=== PATIENT | male | born 1965 | race Hispanic/Latino ===

== ENCOUNTER 2018-01-15 02:15 | Emergency (ER) | payer OTHER, SELFPAY ==
[2018-01-15] MEDS ORDERED: Ondansetron HCl/PF 4 MG/2 ML Vial ONE (02:49)
[2018-01-15 02:50] LABS: #Basophils 0.1 thou/uL (0.0-0.2); #Eosinphils 0.9 thou/uL (0.0-0.7); #Lymphocytes 3.2 thou/uL (1.20-3.40); #Monocytes 0.8 thou/uL (0.11-0.59); #Neutrophils 8.1 thou/uL (1.40-6.50); %Basophils 0.6 % (0.0-1.0); %Eosinophils 6.8 % (0.0-10.0); %Lymphocytes 24.2 % (21.0-51.0); %Monocytes 6.3 % (0.0-10.0); %Neutrophils 62.1 % (42.0-75.0); Hemoglobin 16.1 g/dL (14.0-18.0); Mean Corpuscular HGB CONC 34.1 g/dL (32.0-36.0); Mean Corpuscular Hemoglobin 31.2 pg (27.0-31.0); Mean Corpuscular Volume 91.2 fl (80.0-94.0); Mean Platelet Volume 9.5 fL (7.4-10.4); Platelet Count 209 thou/uL (130-400); RBC Distribution Width 12.5 % (11.5-14.5); Red Blood Cell (RBC) Count 5.16 mill/uL (4.70-6.10)
[2018-01-15 02:50] LABS: Bilirubin Negative (Negative); Blood, Urine Negative (Negative); Clarity CLEAR (Clear); Glucose, Urine (Dipstick) Negative (Negative); Leukocyte Negative (Negative); Nitrite Negative (Negative); Protein, Urine (Dipstick) Negative (Neg-Trace); Specific Gravity, Urine 1.016 (1.002-1.036); Urobilinogen 0.2 mg/dL (0.2-1.0)
[2018-01-15 03:11] LABS: ALT (SGPT) 26 U/L (8-55); AST (SGOT) 16 U/L (5-34); Albumin 4.7 g/dL (3.5-5.0); Alkaline Phosphatase 80 U/L (40-150); Anion Gap 12 mmol/L (10-20); BUN (Urea Nitrogen) 14 mg/dL (8.9-20.6); Bilirubin, Total 0.3 mg/dL (0.2-1.2); Calc. Creatinine Clearance 0 mL/min (70-130); Carbon Dioxide 27 mmol/L (22-29); Chloride 103 mmol/L (98-107); Estimated GFR-MDRD 74; Globulin 3.6 g/dL (2.4-3.5); Glucose 113 mg/dL (70-105); Lipase 27 U/L (8-78); Potassium 4.3 mmol/L (3.5-5.1); Protein, Total 8.3 g/dL (6.0-8.3); Sodium 138 mmol/L (136-145)
[2018-01-15] MEDS ORDERED: Lidocaine Viscous Sol 2% 15 ml UD Cup ONE (03:57)
[2018-01-15] MEDS ORDERED: Pantoprazole 40 MG VIAL ONE ×2 (03:57)
[2018-01-15] MEDS ORDERED: Mag-Al 1200 mg/1200 mg/30 ML UDCUP ONE (03:57)
[2018-01-15 04:26] LABS: CKMB 0.7 ng/mL (0-6.6); Troponin I Less than 0.010 ng/mL (< 0.028)
[2018-01-15] MEDS ORDERED: traMADol HCl 50 MG TAB ONE (08:07)
--- NOTE | 2018-01-15 08:07 | CT ---
PRELIMINARY REPORT/[facility]/EMERGENCY AFTER HOURS PROCEDURE: EXAM: CT Angiography Chest With Intravenous Contrast CLINICAL HISTORY: 52 years old, male; abdominal and back pain onset 1:00 this am. Denies SOB, denies chest pain. TECHNIQUE: Axial computed tomographic angiography images of the chest with intravenous contrast using pulmonary embolism protocol. Coronal and sagittal reformatted images were created and reviewed. COMPARISON: No relevant prior studies available. FINDINGS: Pulmonary arteries: No evidence of pulmonary embolism. Aorta: Normal caliber thoracic aorta without dissection or aneurysm. Lungs: No alveolar infiltrate. Lateral right lung calcified granuloma image 53, series 2. No mass. Pleural space: No pleural fluid collection. No pneumothorax. Heart: No pericardial effusion. No evidence of RV dysfunction. Bones/joints: No acute fracture. No dislocation. Soft tissues: Unremarkable. Lymph nodes: No pathologically enlarged lymph nodes. IMPRESSION: 1. No evidence of pulmonary embolism. 2. Normal caliber thoracic aorta without dissection or aneurysm. 3. No alveolar infiltrate. EXAM: CT Angiography Abdomen Without and With Intravenous Contrast CLINICAL HISTORY: 52 years old, male; abdominal and back pain onset 1:00 this am. Denies SOB, denies chest pain. TECHNIQUE: Axial computed tomographic angiography images of the abdomen without and with intravenous contrast. Coronal and sagittal reformatted images were created and reviewed. COMPARISON: No relevant prior studies available. FINDINGS: Lower thorax: No acute findings. Aorta: Normal caliber abdominal aorta without dissection or aneurysm. Celiac trunk and mesenteric arteries: No acute findings. No occlusion or significant stenosis. Renal arteries: No acute findings. No occlusion or significant stenosis. Liver: Liver fatty infiltration. Gallbladder and bile ducts: Unremarkable. No calcified stones. No ductal dilation. Pancreas: Unremarkable. No ductal dilation. No mass. Spleen: Unremarkable. No splenomegaly. Adrenals: Unremarkable. No mass. Kidneys and ureters: Small renal cysts. No hydronephrosis. Stomach and bowel: Unremarkable. No obstruction. No mucosal thickening. Intraperitoneal space: Unremarkable. No significant fluid collection. No free air. Bones/joints: No acute fracture. No dislocation. Soft tissues: Small fat-containing umbilical hernia. Lymph nodes: A few scattered prominent lymph nodes within the mesentery which could reflect a viral a denitis. IMPRESSION: 1. Normal caliber abdominal aorta without dissection or aneurysm. 2. A few scattered prominent lymph nodes within the mesentery which could reflect a viral adenitis. 3. Otherwise, no acute intra-abdominal process. Thank you for allowing us to participate in the care of your patient. Dictated and Authenticated by: Yair Edwards MD 01/15/2018 3:44 AM Central Time ([place] & [place]) FINAL REPORT EMERGENT AFTER HOURS CT ANGIOGRAM CHEST WITH IV CONTRAST AND 3D MIP RECONSTRUCTIONS EMERGENT AFTER HOURS CT ANGIOGRAM ABDOMEN WITH IV CONTRAST AND 3D MIP RECONSTRUCTIONS: IMPRESSION: Agree with the preliminary interpretation given by [facility]. No evidence for an acute process. POS: [facility]
[2018-01-15] MEDS ORDERED: ISOVUE-370 76%-LOCM 1 ML ONE (11:46)
== END 2018-01-15 08:13 | disposition home or self-care (01) ==
LOC: ERS 02:15
DX: R10.13 Epigastric pain (principal); I10 Essential (primary) hypertension; Z79.899 Other long term (current) drug therapy
CPT/HCPCS: 71275; 80053; 81003; 82553; 83690; 84484; 85025; 93005; 96361; 96374; 96375; C9113; J2270; J2405

== ENCOUNTER 2018-01-18 02:52 | Inpatient (IN) | payer SELFPAY ==
[2018-01-18] MEDS ORDERED: Acetaminophen 500 MG TAB ONE (03:50)
[2018-01-18] MEDS ORDERED: Ondansetron HCl/PF 4 MG/2 ML Vial ONE (04:07)
[2018-01-18 04:10] LABS: Band 4 % (5-11); Hemoglobin 14.5 g/dL (14.0-18.0); Lymphocytes 5 % (21-51); MDiff Complete? YES; Mean Corpuscular HGB CONC 33.1 g/dL (32.0-36.0); Mean Corpuscular Hemoglobin 30.4 pg (27.0-31.0); Mean Corpuscular Volume 91.9 fl (80.0-94.0); Mean Platelet Volume 9.8 fL (7.4-10.4); Monocytes 13 % (0-10); Neutrophil 78 % (42-75); PLT Morphology Comment Appears Adequate; Platelet Count 201 thou/uL (130-400); RBC Distribution Width 12.5 % (11.5-14.5); Red Blood Cell (RBC) Count 4.77 mill/uL (4.70-6.10); White Blood Cell (WBC) Count 23.3 thou/uL (4.8-10.8)
[2018-01-18 04:18] LABS: ALT (SGPT) 128 U/L (8-55); AST (SGOT) 58 U/L (5-34); Alkaline Phosphatase 197 U/L (40-150); Anion Gap 10 mmol/L (10-20); BUN (Urea Nitrogen) 14 mg/dL (8.9-20.6); Bilirubin, Total 2.9 mg/dL (0.2-1.2); Calc. Creatinine Clearance 0 mL/min (70-130); Calcium 9.6 mg/dL (7.8-10.44); Carbon Dioxide 27 mmol/L (22-29); Chloride 101 mmol/L (98-107); Estimated GFR-MDRD 66; Glucose 154 mg/dL (70-105); Lipase 11 U/L (8-78); Potassium 4.2 mmol/L (3.5-5.1); Sodium 134 mmol/L (136-145)
[2018-01-18] MEDS ORDERED: Meropenem 1 GM in Syringe 20 ML SLOW IVP SCH (04:30)
[2018-01-18 06:47] VITALS: BMI 25.3
[2018-01-18] MEDS ORDERED: Ondansetron HCl/PF 4 MG/2 ML Vial IVP PRN ×3 (07:34→15:56)
[2018-01-18] MEDS ORDERED: Ondansetron ODT 4 MG TAB SL PRN (07:34)
[2018-01-18] MEDS ORDERED: ISOVUE-370 76%-LOCM 1 ML ONE (07:35)
[2018-01-18] MEDS: Sodium Chloride 0.9% 1,000 ML IV SCH ×4 (08:24→23:24)
--- NOTE | 2018-01-18 09:41 | CT ---
PRELIMINARY REPORT/[facility]/EMERGENCY AFTER HOURS PROCEDURE: EXAM: CT Abdomen and Pelvis With Intravenous Contrast EXAM DATE/TIME: Exam ordered 01/18/2018 4:08 AM CLINICAL HISTORY: 52 years old, male; Pain; Abdominal pain; Localized; Right; Patient HX: Er 6; Right sided abdominal p ain onset 2 hours ago. Denies n/v/d. Seen in er , dx with gastritis. Fever TECHNIQUE: Axial computed tomography images of the abdomen and pelvis with intravenous contrast. Coronal reforma tted images were created and reviewed. COMPARISON: No relevant prior studies available. FINDINGS: Lower thorax: Bibasilar subsegmental atelectasis. Trace right pleural effusion. ABDOMEN: Liver: Hepatic steatosis. Gallbladder and bile ducts: Gallbladder is dilated and there is severe diffuse pericholecystic inflam mation, consistent with acute cholecystitis. No visible cholelithiasis. No biliary ductal dilatation. Pancreas: Unremarkable. No mass. No ductal dilation. Spleen: Unremarkable. No splenomegaly. Adrenals: Unremarkable. No mass. Kidneys and ureters: Round hypodense lesion of the left kidney does not meet strict CT criteria for a simple cyst and is indeterminate, potentially a hyperdense cyst. It measures 1.2 cm and 26 Hounsfiel d units. Kidneys otherwise unremarkable. Stomach and bowel: Unremarkable. No obstruction. No mucosal thickening. Appendix: Normal appendix. PELVIS: Bladder: Unremarkable. No mass. Reproductive: Mild prostatomegaly. ABDOMEN and PELVIS: Intraperitoneal space: Unremarkable. No free air. No significant fluid collection. Bones/joints: No acute fracture. No dislocation. Soft tissues: Unremarkable. Vasculature: Unremarkable. No abdominal aortic aneurysm. Lymph nodes: Unremarkable. No enlarged lymph nodes. IMPRESSION: 1. Acute cholecystitis. 2. Indeterminate left renal lesion as above, potentially a hyperdense cyst. Thank you for allowing us to participate in the care of your patient. Dictated and Authenticated by: Paolo Franco MD 01/18/2018 4:21 AM Central Time ([place] & [place]) FINAL REPORT CT ABDOMEN AND PELVIS WITH IV CONTRAST: Date: 01/18/18 FINDINGS/IMPRESSION: I agree with the preliminary report given by [facility]. POS: [facility]
--- NOTE | 2018-01-18 09:45 | ULT ---
PRELIMINARY REPORT/[facility]/EMERGENCY AFTER HOURS PROCEDURE: EXAM: US Abdomen Limited, Right Upper Quadrant CLINICAL HISTORY: 52 years old, male; Pain; Other: Abd pain, gb abnormal on CT TECHNIQUE: Real-time ultrasound of the right upper quadrant with image documentation. COMPARISON: CT Abdomen Pelvis W Con 2018-01-18 04:08 FINDINGS: Liver: Echogenicity compatible with steatosis. Gallbladder: Distended gallbladder containing sludge and stones with wall thickening measured measuri ng up to 7-8mm. Small amount of pericholecystic fluid. Positive Willis sign reported. Common bile duct: Common bile duct not well-visualized, normal in caliber on recent CT. Pancreas: Obscured by bowel gas. Right kidney: Normal. IMPRESSION: Findings compatible with cholecystitis. Thank you for allowing us to participate in the care of your patient. Dictated and Authenticated by: Yair Hui MD 01/18/2018 6:36 AM Central Time ([place] & [place]) FINAL REPORT RIGHT UPPER QUADRANT ULTRASOUND: Date: 01/18/18 FINDINGS/IMPRESSION: I agree with the preliminary report given by [facility]. POS: [facility]
[2018-01-18] MEDS ORDERED: Acetaminophen 1,000 MG in Premix Bag 1 BAG IVPB SCH (11:45)
[2018-01-18] MEDS ORDERED: Ketorolac Tromethamine 30 MG/ML VIAL IVP SCH (11:45)
--- NOTE | 2018-01-18 12:35 | HP ---
HISTORY OF PRESENT ILLNESS: Sebas Jorge is a 52-year-old male patient, who works as a equipment operator/laborer/supervisor on a [employer], presents to the hospital with epigastric right upper quadrant pain. Seen in the emergency room , and CAT scan of abdomen and pelvis and ultrasound revealed bile duct caliber 7-8 mm without intrahe patic ductal dilatation and findings consistent with acute cholecystitis. White count is 23,000, hem oglobin 14, sodium 134, bilirubin 2.9, AST and ALT 58 and 128 respectively, alkaline phosphatase 197, lipase 11. ALLERGIES: None. TOBACCO: None. ALCOHOL: None. MEDICATIONS: Lisinopril 20 mg a day, simvastatin 20 mg at bedtime, amlodipine 5 mg a day, aspirin 81 mg a day, omeprazole 20 mg a day, 10 mg a day Zyrtec. He was in the hospital recently in December, medical service for some, what was described as, chest d iscomfort. Underwent a CT dissection protocol. Echocardiogram that was normal and he is documented as to having exercise stress test that was negative. PAST SURGICAL HISTORY: Noncontributory. PAST MEDICAL HISTORY: Hypertension and cholesterol. REVIEW OF SYSTEMS: Ten-point noncontributory otherwise. PHYSICAL EXAMINATION: VITAL SIGNS: 77 kilograms, 124/73, 98.4, 94, 16, 134/85. EYES: Sclerae nonicteric. SKIN: Nonjaundiced. LUNGS: Clear to auscultation. CARDIAC: Regular rate and rhythm without murmur, rub, or gallop. ABDOMEN: Soft, tenderness in right upper quadrant, positive Willis's sign. EXTREMITIES: Unremarkable. Ankles without edema. ASSESSMENT AND PLAN: 1. Acute cholecystitis. Recommend laparoscopic video cholecystectomy and cholangiogram. I talked t o Dr. Maurice Robb and he will be evaluated for ERCP. He will consult him and see him prior to the o peration in case ERCP is necessary. Risk of infection, bleeding, visceral and biliary injury explain ed. He consents. 2. Hypertension. 3. Elevated cholesterol.
[2018-01-18] MEDS ORDERED: Iothalamate Meglumine 60% 50 ML VIAL FS ONE (12:52)
[2018-01-18] MEDS ORDERED: Bupivacaine HCl 0.5%/Epinephrine 1:200,000/PF 30 ml Vial ONE (12:52)
[2018-01-18] MEDS ORDERED: Fentanyl 100 MCG/2 ML VIAL ONE ×2 (13:24→15:02)
[2018-01-18] MEDS ORDERED: traMADol HCl 50 MG TAB PO PRN (14:38)
[2018-01-18] MEDS ORDERED: Promethazine HCl 25 MG/ML VIAL IM PRN (14:47)
[2018-01-18] MEDS ORDERED: Promethazine HCl 25 MG/ML VIAL SLOW IVP PRN (14:47)
--- NOTE | 2018-01-18 15:48 | RAD ---
CHOLANGIOGRAM IN SURGERY: Date: 01/18/18 HISTORY: Laparoscopic cholecystectomy, cholecystitis. FINDINGS/IMPRESSION: Single spot fluoroscopic image of the right upper quadrant during an intraoperative cholangiogram dem onstrates opacification of the common bile duct, cystic duct remnant, hepatic ducts and their branche s, and the pancreatic duct without filling defects. There is contrast in the second portion of the du odenum. Surgical instruments are in the field of view. POS: [facility]
[2018-01-18] MEDS ORDERED: Lidocaine 1% PF 5 ML VIAL ONE (15:52)
[2018-01-18] MEDS ORDERED: Glycopyrrolate 0.2 MG/ML 5 ML SYRINGE ONE (15:52)
[2018-01-18] MEDS ORDERED: PROPOFOL 200 MG/20 ML VIAL ONE (15:52)
[2018-01-18] MEDS ORDERED: Ondansetron ODT 8 MG TAB SL PRN (15:56)
[2018-01-18] MEDS ORDERED: Ondansetron ODT 8 MG TAB PO PRN (15:56)
[2018-01-18] MEDS ORDERED: Ondansetron ORAL SOLN. 4 MG/5 ML UDCUP PO PRN ×2 (15:56)
[2018-01-18] MEDS ORDERED: Ondansetron ODT 4 MG TAB PO PRN (15:56)
--- NOTE | 2018-01-18 16:07 | OP ---
PREOPERATIVE DIAGNOSES: Severe cholecystitis, elevated liver function tests, positive sonographic Mu rphy's, normal common bile duct caliber, upper limits of normal 7-8 mm, 52 years of age. POSTOPERATIVE DIAGNOSES: Severe cholecystitis, elevated liver function tests, positive sonographic M urphy's, normal common bile duct caliber, upper limits of normal 7-8 mm, 52 years of age. Liver func tion tests elevated secondary to acute cholecystitis. PROCEDURE PERFORMED: Laparoscopic video cholecystectomy. Normal intraoperative cholangiograms. A # 19 Gold RUTH drain placed in the right gutter subhepatic space. SURGEON: Dr. César La. ANESTHESIA: General. Local 0.5% Marcaine with epinephrine, 30 mL PROCEDURE IN DETAIL: The patient was taken to the operating room where under general anesthesia, abd omen was prepared with ChloraPrep, draped in routine fashion. Local anesthetic infiltrated into skin and subcutaneous tissue about each port site. Infraumbilical incision was made and pneumoperitoneum to 15 mmHg obtained with the Veress needle, replacing it with a 5 port and video laparoscope inserte d. Right subxiphoid incision made and 11 port placed. Right subcostal incision made mid clavicular anterior axillary lines and 5 ports placed. Liver appeared to be normal. Gallbladder was acutely in flamed with gangrenous patches surrounded by omentum. Omentum taken down and gallbladder wall was th ickened and I could not grasp it, I decompressed the gallbladder of its contents using cautery and abad ctioned then grasped the fundus, reflected cephalad. Severe inflammatory adhesions taken down identi fying the cystic duct, which was dissected free. Clip placed against the gallbladder. An opening ma de in the cystic duct and cholangiocath inserted and cholangiogram was obtained revealing free flow o f contrast into the duodenum without filling defects in the common hepatic, common bile, left and rig ht hepatic ducts. Common bile duct was small in caliber. Cholangiocath removed. Cystic duct stump doubly clipped, divided and gallbladder dissected free from the liver bed obtaining good hemostasis p rior to division of final peritoneal attachments. Gallbladder and contents were placed in an Endobag and removed. Irrigant and pneumoperitoneum evacuated. Good hemostasis ensured with the cautery. A rista placed in the gallbladder bed. Good hemostasis ensured. A #19 Gold RUTH drain placed in the gal lbladder bed, subhepatic fossa and brought out through the right lateral port site and secured with 3 -0 nylon. Irrigant and pneumoperitoneum evacuated. All instruments removed and all skin incisions a pproximated with interrupted subdermal 4-0 Monocryl after subxiphoid fascia approximated with figure- of-eight suture of 0 Vicryl UR needle. Good hemostasis had been achieved. Dermabond applied to the wound. The patient tolerated the procedure well.
[2018-01-18] MEDS: Ketorolac Tromethamine 30 MG/ML VIAL IVP PRN (16:50)
[2018-01-18] MEDS: Piperacillin/Tazobactam 4.5 GM in Sodium Chloride 0.9% 100 ML IVPB SCH ×2 (16:50→21:26)
[2018-01-18] MEDS: Enoxaparin Sodium 40 MG/0.4 ML SYRINGE SC SCH (21:28)
[2018-01-18] MEDS: traMADol HCl 50 MG TAB PO PRN (21:35)
[2018-01-19] MEDS: Ketorolac Tromethamine 30 MG/ML VIAL IVP PRN ×3 (02:21→20:44)
[2018-01-19] MEDS: Acetaminophen 500 MG TAB PO PRN ×3 (02:24→17:14)
[2018-01-19] MEDS ORDERED: Tamsulosin HCl 0.4 MG CAP PO SCH (04:30)
[2018-01-19] MEDS: Piperacillin/Tazobactam 4.5 GM in Sodium Chloride 0.9% 100 ML IVPB SCH ×4 (05:35→22:17)
[2018-01-19 05:47] LABS: #Eosinphils 0.1 thou/uL (0.0-0.7); #Lymphocytes 1.2 thou/uL (1.20-3.40); #Monocytes 1.4 thou/uL (0.11-0.59); #Neutrophils 13.1 thou/uL (1.40-6.50); %Basophils 0.2 % (0.0-1.0); %Eosinophils 0.5 % (0.0-10.0); %Lymphocytes 7.6 % (21.0-51.0); %Monocytes 8.9 % (0.0-10.0); %Neutrophils 82.9 % (42.0-75.0); Hemoglobin 11.7 g/dL (14.0-18.0); Mean Corpuscular HGB CONC 33.2 g/dL (32.0-36.0); Mean Corpuscular Volume 93.3 fl (80.0-94.0); Mean Platelet Volume 9.8 fL (7.4-10.4); Platelet Count 190 thou/uL (130-400); RBC Distribution Width 12.5 % (11.5-14.5); Red Blood Cell (RBC) Count 3.77 mill/uL (4.70-6.10); White Blood Cell (WBC) Count 15.8 thou/uL (4.8-10.8)
[2018-01-19 06:04] LABS: ALT (SGPT) 111 U/L (8-55); AST (SGOT) 70 U/L (5-34); Alkaline Phosphatase 176 U/L (40-150); Anion Gap 8 mmol/L (10-20); BUN (Urea Nitrogen) 11 mg/dL (8.9-20.6); Bilirubin, Direct 2.6 mg/dL (0.1-0.3); Bilirubin, Total 3.1 mg/dL (0.2-1.2); Calc. Creatinine Clearance 113 mL/min (70-130); Calcium 8.6 mg/dL (7.8-10.44); Carbon Dioxide 26 mmol/L (22-29); Chloride 105 mmol/L (98-107); Estimated GFR-MDRD 85; Glucose 123 mg/dL (70-105); Potassium 3.9 mmol/L (3.5-5.1); Sodium 135 mmol/L (136-145)
[2018-01-19] MEDS: Sodium Chloride 0.9% 1,000 ML IV SCH ×2 (06:31→17:20)
[2018-01-19] MEDS: Ibuprofen 600 MG TAB PO PRN (06:35)
[2018-01-19 07:03] LABS: Bilirubin Large (Negative); Blood, Urine Negative (Negative); Clarity CLEAR (Clear); Glucose, Urine (Dipstick) Negative (Negative); Leukocyte Negative (Negative); Nitrite Negative (Negative); Protein, Urine (Dipstick) 30 mg/dL (Neg-Trace); Specific Gravity, Urine 1.026 (1.002-1.036); pH, Urine 6.5 (5.0-9.0)
[2018-01-19 07:08] LABS: Bacteria/HPF None Seen HPF (None Seen); Hyaline Casts/LPF 0-3 HYALINE CAST LPF (0-3 Hyaline); Squamous Epithelial None Seen HPF (0-3); WBC/HPF 0-3 HPF (0-3)
[2018-01-19] MEDS: Polyethylene Glycol 3350 17 GM Packet PO SCH (08:30)
[2018-01-19] MEDS: Tamsulosin HCl 0.4 MG CAP PO SCH (08:32)
[2018-01-19] MEDS: traMADol HCl 50 MG TAB PO PRN ×2 (11:06→17:14)
--- NOTE | 2018-01-19 18:34 | PRG ---
DATE OF SERVICE: 01/19/2018 SUBJECTIVE: Sebas Jorge is doing well. One day status post laparoscopic cholecystectomy for gangren ous gallbladder. The patient has remained afebrile, 98.7 degrees, 84, 116/77. He has had problems u rinating. He reports problems at home urinating. He has been started on Flomax. Urology has seen h im and outpatient followup arranged. He is now voiding after two in and out caths. LABORATORY: White count down to 15,000 from 23,000 yesterday, hemoglobin stable at 11.7. Liver func tion tests are improved. Bilirubin 3.1 OBJECTIVE: LUNGS: Clear to auscultation. CARDIAC: Regular rate and rhythm without murmur or gallop. ABDOMEN: Soft, bowel sounds present. He is tolerating his diet. He has not had a bowel movement ye t. At this point, he is doing well. We will saline lock his IV fluids. Continue intravenous antibiotic s, sent to home with oral antibiotics. Continue Flomax for BPH and bladder outlet obstructive sympto ms that he had prior to this hospitalization. Check liver function test tomorrow as it remains sligh tly elevated. Expecting resolve with time. His RUTH drain is putting out serous fluid. We will kedar moffett remove that tomorrow.
[2018-01-19] MEDS: Enoxaparin Sodium 40 MG/0.4 ML SYRINGE SC SCH (20:42)
--- NOTE | 2018-01-20 03:13 | CON ---
DATE OF CONSULTATION: 01/19/2018 CHIEF COMPLAINT: Incomplete emptying, BPH. HISTORY OF PRESENT ILLNESS: Mr. Jorge is a 52-year-old gentleman who was seen in the emergency room o n 01/18/2018 and diagnosed with acute cholecystitis. He is now status post laparoscopic cholecystect louise in 01/18/2018. He tolerated the procedure well, but has had some complaints of urinary difficult ies. He was noted to have a post-residual of approximately 250. He is voiding. He states his curre nt voiding is not much worse than typical. He has a long history of urinary frequency and diminished stream. He has nocturia 3 times per night. This has been ongoing and not particularly worse at thi s time. He denies any dysuria. Denies any prior urologic history. He has not been taking any medic al therapy or had any evaluation in the past. He denies any prior prostate surgery. PAST MEDICAL HISTORY: Hypertension, hypercholesterolemia. PAST SURGICAL HISTORY: Laparoscopic cholecystectomy on 01/18/2018. ALLERGIES: No known drug allergies. SOCIAL HISTORY: He denies excessive alcohol or drug use. REVIEW OF SYSTEMS: Respiratory: No shortness of breath. Cardiovascular: No chest pain or palpitat ions. Gastrointestinal: Denies chronic constipation or diarrhea. Genitourinary: Please see histor y of present illness. Neurologic: Denies any dizziness. Endocrine: Denies history of diabetes. PHYSICAL EXAMINATION: GENERAL: He is awake, alert, is in no distress at this time. HEENT: Normocephalic, atraumatic. NECK: Supple, without masses. CHEST: Clear to auscultation. CARDIOVASCULAR: No murmurs auscultated. ABDOMEN: Soft, nontender, no palpable masses. Liver and spleen are palpable. No abdominal tenderne ss. GENITOURINARY: Penis with no lesions. Urethral meatus appears normal. Scrotum: No lesions. Testi cles palpably normal bilaterally. DIGITAL RECTAL EXAMINATION: 30 gram prostate, no nodules, no tenderness. Seminal vesicles are not p alpable. IMPRESSION: Mr. Jorge has a history consistent with BPH. He does not empty completely, but his curre nt voiding pattern is not significantly different than preop. I suspect he will respond well to medi merle therapy. He did not recommend catheterization unless he has worsening of his urinary symptoms. RECOMMENDATIONS: 1. Begin Flomax. 2. PSA. 3. May be discharged home, when deemed clinically able by Dr. La. I have sent a prescription fo r Flomax to his pharmacy in [place], [place]. He had been given my contact information for followup.
[2018-01-20] MEDS: Piperacillin/Tazobactam 4.5 GM in Sodium Chloride 0.9% 100 ML IVPB SCH (04:40)
[2018-01-20 04:45] LABS: #Basophils 0.1 thou/uL (0.0-0.2); #Eosinphils 0.2 thou/uL (0.0-0.7); #Lymphocytes 1.8 thou/uL (1.20-3.40); #Monocytes 1.5 thou/uL (0.11-0.59); #Neutrophils 10.6 thou/uL (1.40-6.50); %Basophils 0.6 % (0.0-1.0); %Eosinophils 1.5 % (0.0-10.0); %Lymphocytes 12.4 % (21.0-51.0); %Monocytes 10.3 % (0.0-10.0); %Neutrophils 75.2 % (42.0-75.0); Hemoglobin 11.5 g/dL (14.0-18.0); Mean Corpuscular HGB CONC 31.9 g/dL (32.0-36.0); Mean Corpuscular Volume 93.9 fl (80.0-94.0); Mean Platelet Volume 9.4 fL (7.4-10.4); Platelet Count 200 thou/uL (130-400); RBC Distribution Width 12.6 % (11.5-14.5); Red Blood Cell (RBC) Count 3.84 mill/uL (4.70-6.10); White Blood Cell (WBC) Count 14.1 thou/uL (4.8-10.8)
[2018-01-20 05:08] LABS: ALT (SGPT) 74 U/L (8-55); AST (SGOT) 34 U/L (5-34); Albumin 2.8 g/dL (3.5-5.0); Alkaline Phosphatase 176 U/L (40-150); Anion Gap 9 mmol/L (10-20); BUN (Urea Nitrogen) 12 mg/dL (8.9-20.6); Bilirubin, Total 2.3 mg/dL (0.2-1.2); Calc. Creatinine Clearance 104 mL/min (70-130); Calcium 8.6 mg/dL (7.8-10.44); Carbon Dioxide 27 mmol/L (22-29); Chloride 103 mmol/L (98-107); Estimated GFR-MDRD 77; Globulin 3.1 g/dL (2.4-3.5); Glucose 93 mg/dL (70-105); Potassium 3.7 mmol/L (3.5-5.1); Protein, Total 5.9 g/dL (6.0-8.3); Sodium 135 mmol/L (136-145)
[2018-01-20] MEDS: Acetaminophen 500 MG TAB PO PRN (06:24)
[2018-01-20] MEDS: traMADol HCl 50 MG TAB PO PRN (06:25)
[2018-01-20 08:25] VITALS: BP 137/91; TEMP 99.1
[2018-01-20] MEDS: Tamsulosin HCl 0.4 MG CAP PO SCH (08:25)
[2018-01-20] MEDS: Polyethylene Glycol 3350 17 GM Packet PO SCH (08:25)
--- NOTE | 2018-01-20 09:01 | PRG ---
DATE OF SERVICE: 01/20/2017 Sebas Jorge is doing well today. PHYSICAL EXAMINATION: VITAL SIGNS: Stable, afebrile, 99.1 degrees, heart rate 92, respiratory rate 15. LABORATORY: His white count is 14 down from 15 yesterday and 23 the day prior. Hemoglobin is stable at 11.5, sodium 135, BUN and creatinine 12 and 1.02 respectively. Bilirubin down from 3.1 to 2.3 to day. Transaminases are improved. PSA is normal. He is urinating and Flomax has been started. The patient was seen by Dr. Montes and will follow up with him for his BPH and chronic urinary problems. He was sent home on Cipro 500 b.i.d. for 5 days, Flomax #60, 3 refills and Ultram 50 as needed for pa in refractory to [id number] Tylenol and ibuprofen. Diet and activity as tolerated. Drain will be removed. He will be off work this week and resume wor k next week. LUNGS: Clear to auscultation. CARDIAC: Regular rate and rhythm without murmur or gallop. ABDOMEN: Soft, nontender. RUTH drain serosanguineous fluid, nonbilious will be removed today prior to discharge.
[2018-01-20] MEDS: Ibuprofen 600 MG TAB PO PRN (10:15)
--- NOTE | 2018-01-20 10:18 | DIS ---
ADMISSION DATE: 01/18/2018 DISCHARGE DATE: 01/20/2018 DISCHARGE DIAGNOSES: 1. Acute cholecystitis, gangrenous, elevated liver function tests secondary to above, normal bile du ct caliber 7 to 8 mm. 2. Chronic BPH, chronic urinary symptoms prior to this hospitalization exacerbated postoperatively r equired in and out catheterization, postoperatively seen by Urology, Dr. Montes who will follow him up as an outpatient. PROCEDURES: Laparoscopic cholecystectomy, cholangiograms normal. DISCHARGE MEDICATIONS: Cipro 500 b.i.d. 10 days, Flomax 0.4 mg a day #[address] Leela medel. Tramadol #21 refill, [id number] Tylenol, ibuprofen for pain. Resume home medications. Lisinopril 20 mg a day, simvastatin 20 mg at bedtime, amlodipine 5 mg a day, aspirin 81 mg a day, ome prazole 20 mg a day, Zyrtec as needed. HISTORY: A 52-year-old male presenting to the emergency room with abdominal pain, severe high white count, elevated liver function tests, bilirubin up to 3.5, bile duct caliber 8 mm, on his ultrasound with multiple gallstones. Gastroenterology was consulted in case ERCP was necessary. Postoperativel y, patient underwent laparoscopic video cholecystectomy with severe inflammatory changes in the gallb ladder noted with gangrenous patches. Cholangiogram was normal. Postoperatively, his bilirubin was on the decline by the time of discharge. He will be discharged home with the above regimen. Follow up with Dr. La in 2 to 3 weeks, Dr. Montes in 2 to 3 weeks and [facility] in a few weeks. Diet and activity as tolerated. Drain removed prior to discharge.
[2018-01-20] MEDS ORDERED: Ciprofloxacin 500 MG TAB PO SCH (20:00)
== END 2018-01-20 11:40 | disposition home or self-care (01) | DRG 412 ==
LOC: ERS 02:52 → SURG B 06:05
PROVIDERS: ADMIT Specialist; ATTEND Specialist
PROC: 0FT44ZZ Resection of Gallbladder, Percutaneous Endoscopic Approach (ICD-10-PCS; principal; 2018-01-18)
PROC: 0F9940Z Drainage of Common Bile Duct with Drainage Device, Percutaneous Endoscopic Approach (ICD-10-PCS; 2018-01-18)
PROC: BF10YZZ Fluoroscopy of Bile Ducts using Other Contrast (ICD-10-PCS; 2018-01-18)
DX: K81.0 Acute cholecystitis (principal); N13.8 Other obstructive and reflux uropathy; E78.5 Hyperlipidemia, unspecified; I10 Essential (primary) hypertension; Z79.82 Long term (current) use of aspirin; K82.8 Other specified diseases of gallbladder; N40.1 Benign prostatic hyperplasia with lower urinary tract symptoms
CPT/HCPCS: 36415; 47532; 74177; 76705; 80048; 80053; 80076; 81001; 83690; 84153; 85025; 87086; 88304; 96361; 96374; 96375; J0131; J0670; J1610; J1650; J1885; J2001; J2185; J2270; J2405; J2543; J2704; J3010; J7050; Q9961